=== PATIENT | female | born 1960 | race Two or more races ===

== ENCOUNTER → 2024-08-20 13:40 | Outpatient (CLI) | payer OTHER | END | disposition home or self-care (01) | LOC: LAB 13:40 | PROVIDERS: ATTEND Internal Medicine Nephrology | DX: K62.89 Other specified diseases of anus and rectum (principal); B37.9 Candidiasis, unspecified; B95.62 Methicillin resistant Staphylococcus aureus infection as the cause of diseases classified elsewhere; R82.90 Unspecified abnormal findings in urine; N18.6 End stage renal disease; Z99.2 Dependence on renal dialysis ==